=== PATIENT | female | born 1965 | race Caucasian/White ===

== ENCOUNTER 2016-05-01 15:38 | Emergency (ER) | payer BC ==
[~2016-05-01] VITALS: Ht 165.1 cm; Wt 63.0 kg
[~2016-05-01 15:38] MED LIST: CIPR500T4 PO; OMEP20CA16 PO; RANI150T9 PO
[2016-05-01 16:19] VITALS: Ht 165.1 cm; Wt 63.0 kg
[2016-05-01] MEDS ORDERED: MECLIZINE 12.5 MG TAB PO ONE (17:00)
[2016-05-01] MEDS ORDERED: ACETAMINOPHEN/CODEINE #3 TAB PO ONE (17:00)
--- NOTE | 2016-05-01 18:58 | ERD ---
ER Documentation Chief Complaint Date/Time DATE: 05/01/16 TIME: 18:43 Chief Complaint DIZZINESS X3 WEEKS. HPI Pleasant 50-year-old female presenting to emergency department today with complaints of dizziness described as spinning. Patient brought in by son, patient is [place]-speaking son will provide translation. Reports symptoms started 3 weeks ago. Patient states this "very bad sinus pain". Headache, right ear clogged. Patient states nasal congestion with mucus coming from her nose and postnasal drip, nausea without vomiting, states subjective dizziness. Patient denies chest pain, shortness of breath, or dyspnea. Patient able to ambulate without deficit. She has tried [id number] sinus and cold medication with little relief of symptoms. ROS All systems reviewed and are negative except as per history of present illness. Medications Home Meds Active Scripts Fluticasone Propionate (Flonase Allergy Relief) 9.9 Ml [place].susp, 1 SPRAY NASAL BID, #1 BOTTLE TO EACH NOSTRIL Prov:GENESIS,TREE 05/01/16 Meclizine Hcl* (Meclizine Hcl*) 25 Mg Tablet, 25 MG PO Q8H Y for dizziness for 10 Days, TAB Prov:GENESIS,TREE 05/01/16 Amoxicillin* (Amoxicillin*) 500 Mg Cap, 500 MG PO TID for 10 Days, CAP Prov:GENESIS,TREE 05/01/16 Ciprofloxacin Hcl* (Ciprofloxacin Hcl*) 500 Mg Tablet, 500 MG PO BID for 7 Days , TAB Prov:ZARIA PALACIO DO 10/09/15 Ranitidine Hcl* (Zantac*) 150 Mg Tablet, 150 MG PO BID Y for EPIGASTRIC PAIN, # 30 TAB Prov:ZARIA PALACIO DO 10/09/15 Reported Medications Omeprazole* (Omeprazole*) 20 Mg Capsule.dr, 20 MG PO DAILY, #30 CAP 10/09/15 Allergies Allergies: Coded Allergies: ibuprofen (Unverified Adverse Reaction, Unknown, 10/09/15) naproxen (Unverified Adverse Reaction, Unknown, 10/09/15) PMhx/Soc Medical and Surgical Hx: pt denies Surgical Hx History of Surgery: No Anesthesia Reaction: No Hx Neurological Disorder: No Hx Respiratory Disorders: No Hx Cardiac Disorders: Yes (HYPERLIPIDEMIA) Hx Psychiatric Problems: No Hx Miscellaneous Medical Probl: Yes (MENOPAUSED, LMP 05/30/11, FATTY LIVER) Hx Alcohol Use: No Hx Substance Use: No Hx Tobacco Use: No Smoking Status: Never smoker Physical Exam Vitals Vital Signs Date Time Temp Pulse Resp B/P Pulse Ox O2 Delivery O2 Flow Rate FiO2 05/01/16 19:12 98.4 60 18 143/74 100 Room Air 05/01/16 16:19 98.0 77 16 122/75 100 Vital signs stable, nursing notes reviewed Physical Exam Const: No acute distress Head: Atraumatic Eyes: Normal Conjunctiva, no pallor, no jaundice, PERRLA, EOMI ENT: Right tympanic membrane not visualized related to cerumen impaction. Left tympanic membrane is dull. Nasal mucosa edematous +3, terminates touching on right. Ethmoid sinus tenderness, maxillary tenderness, patient reports pressure behind eyes with leaning forward. Pharynx erythemic with mucus noted posteriorly, positive for cobblestoning. Neck: Full range of motion..~ No meningismus. Resp: Clear to auscultation bilaterally no rales wheezes or rhonchi Cardio: Regular rate and rhythm, no murmurs S1-S2, no S3-S4 Abd: Abdomen soft, symmetric, nontender to palpation Skin: Back: Ext: Neur: Awake and alert Speech is clear, pupils equal round and reactive to light and accommodation, sensation to light touch is intact bilaterally. There is no pronator drift. Finger to nose test is intact bilaterally. Table [employer] Supervisor strength is 5/5. Flexion and extension is intact bilaterally Psych: Normal Mood and Affect Results 24 hrs Current Medications Medications (Trade) Dose Ordered Sig/Hayde Route PRN Reason Start Time Stop Time Status Last Admin Dose Admin Meclizine HCl (Antivert) 12.5 mg ONCE ONCE PO 05/01/16 17:00 05/01/16 17:16 DC 05/01/16 18:19 Acetaminophen/ Codeine Phosphate (Tylenol No.3) 1 tab ONCE ONCE PO 05/01/16 17:00 05/01/16 17:16 DC 05/01/16 18:19 Procedures/MDM Pleasant 50-year-old female [place]ander-speaking brought in by son for 3 weeks of sinus symptoms progressively worsening. Patient now reports headache, lightheadedness described as spinning, right ear pain. Physical exam findings consistent with sinusitis. Peripheral vertigo is not ruled out at this time. Patient responded to meclizine while in emergency room department will be discharged home with meclizine. Cardiovascular workup is not appropriate for this complaint without chest pain, shortness of breath, or dyspnea. I feel the patient is stable for discharge at this time, and rule respond to outpatient therapy and follow-up with primary care physician. I have discussed results, examination findings, the treatment plan with the patient and family present prior to discharge. Indications for emergent reevaluation included chest pain, shortness of breath, palpitations, or worsening of symptoms, side effects of medication were also discussed. All questions were answered. Patient verbalizes understanding and agrees with plan of care. Late entry nurse practitioner called By [facility] on 05/02/2016. Patient has a penicillin allergy documented on [facility] allergies, not documented on hospital intake allergies. Nurse practitioner changed Augmentin to clarithromycin 500 mg 1 tab p.o. twice daily 10 days. Departure Diagnosis: Primary Impression: Sinusitis, acute Sinusitis location: unspecified location Recurrence: not specified as recurrent Qualified Code: J01.90 - Acute sinusitis, recurrence not specified, unspecified location Condition: Good Patient Instructions: Acute Sinusitis Comments Thank you for for coming to [facility] for your care today. Please ask your nurse or provider if you have questions about your care today and do not leave until all your questions have been answered. Please use any medications given as directed and follow-up with your doctor (or the doctor you were referred to) in the next 2-3 days. If you do not have a primary care doctor you may follow up at the [facility] (listed below). You may also use motrin and tylenol as needed for fever and/or pain unless instructed otherwise by your provider or nurse. Indications for more urgent follow-up have been discussed, but you may return to the Emergency Department at ANY time for any worrisome or worsening symptoms. If you have abdominal pain, please know that no test or exam you received is perfect and you should follow up within 8 hours for continued pain. If you had any imaging studies today, such as an X-Ray or CT Scan, these studies will be reviewed later by a radiologist. You will be called if there are important findings that were not identified today, so make sure the contact information you provided at registration is correct. If you received any narcotic pain control medicine today, such as Vicodin, Morphine or Dilaudid, your coordination and judgment may be affected for a number of hours. Please do not drive or operate heavy machinery, and you may want someone to assist you at home. If you were given a prescription for narcotic medication, be aware that it is very addictive- use sparingly and only if necessary. TREE HURTADO May 01, 2016 18:56
[2016-05-01] MEDS ORDERED: AMO500 PO (18:59)
[2016-05-01] MEDS ORDERED: MECL-77 PO (19:02)
[2016-05-01] MEDS ORDERED: FLUT9.9S NASAL (19:02)
[2016-05-01 19:12] VITALS: BP 143/74; PULSE 60; RESP 18; TEMP 98.4
== END 2016-05-01 19:10 | disposition home or self-care (01) ==
LOC: FTE 15:38
DX: J01.90 Acute sinusitis, unspecified (principal)
CPT/HCPCS: 99283; Z7610

== ENCOUNTER 2017-06-11 17:04 | Emergency (ER) | END 2017-06-11 20:00 | disposition home or self-care (01) ==